=== PATIENT | female | born 1945 | race Caucasian/White ===

== ENCOUNTER 2016-12-21 13:30 | Emergency (ER) | payer BC, MEDICARE ==
[~2016-12-21] VITALS: Ht 167.6 cm; Wt 90.7 kg
[~2016-12-21 13:30] MED LIST: ASPI81TA2 PO; ATEN50TA PO; CHOL20004 PO; CYAN100031 PO; FENO48TA16 PO; FURO20TA3 PO; GLIM2TAB2 PO; HYDR12.58 PO; LISI-334 PO; LOVA40TA2 PO; MELO-156 PO; METF500T4 PO
[2016-12-21 13:38] VITALS: BP 201/95
[2016-12-21] MEDS ORDERED: fentaNYL PF VIAL 100 MCG/2 ML VIAL IM ONE (13:45)
--- NOTE | 2016-12-21 14:10 | PHYS DOC ---
Past Medical History Past Medical History: Cancer, Diabetes-Type II, Hypertension, Other Additional Past Medical Histor: SKIN CA Past Surgical History: Hysterectomy, Pacemaker Alcohol Use: None Drug Use: None Adult General Chief Complaint Chief Complaint: LOWEREXTREMITY INJURY HPI HPI Patient is a 71 year old female with history of diabetes type 2, hypertension, who presents today with mild right anterior knee pain and right foot pain that began today after she fell down. Patient states she tripped on her grandchildren 's block and she fell on her buttock. Patient denies any back pain. Review of Systems Review of Systems Constitutional: Denies fever or chills [] Eyes: Denies change in visual acuity, redness, or eye pain [] HENT: Denies nasal congestion or sore throat [] Musculoskeletal: Right anterior knee and right foot pain Integument: Denies rash or skin lesions [] Neurologic: Denies headache, focal weakness or sensory changes [] Endocrine: Denies polyuria or polydipsia [] Current Medications Current Medications Current Medications Medications (Trade) Dose Ordered Sig/Anderson Start Time Stop Time Status Last Admin Dose Admin Fentanyl Citrate (Fentanyl 2ml Vial) 50 mcg 1X ONCE 12/21/16 13:45 12/21/16 13:46 DC 12/21/16 14:14 50 MCG Allergies Allergies Allergies Coded Allergies Type Severity Reaction Last Updated Verified codeine Allergy Intermediate 10/14/14 Yes Physical Exam Physical Exam Constitutional: Well developed, well nourished, no acute distress, non-toxic appearance. [] HENT: Normocephalic, atraumatic, bilateral external ears normal, oropharynx moist, no oral exudates, nose normal. [] Eyes: PERRLA, EOMI, conjunctiva normal, no discharge. [] Skin: Warm, dry, no erythema, no rash. [] Back: No tenderness, no CVA tenderness. [] Extremities: Right lower extremity with no obvious deformity. Tenderness diffusely on palpation of the right anterior knee. Full range of motion to the right knee, negative Fredy sign and negative Ollie's sign negative anterior -posterior drawer sign to the right knee. Right dorsal foot with small amount of bruising on the distal end of the first and second metatarsals. Tenderness on palpation to the area. No pain or tenderness on palpation of the right navicular bone or the base of the fifth metatarsal. Full range of motion to the right foot. +2 right pedal pulse. Cap refill less than 2 seconds the right lower extremity. Sensation intact to the right lower extremity. Neurologic: Alert and oriented X 3, normal motor function, normal sensory function, no focal deficits noted. [] Psychologic: Affect normal, judgement normal, mood normal. [] Current Patient Data Vital Signs Vital Signs Date Time Temp Pulse Resp B/P (MAP) Pulse Ox O2 Delivery O2 Flow Rate FiO2 12/21/16 14:14 16 Room Air 12/21/16 13:38 97.7 89 97 97.7 EKG EKG [] Radiology/Procedures Radiology/Procedures []PROCEDURE: FOOT RIGHT 3V Exam performed: Right foot 3 views. Clinical Indication: Patient tripped and fell today, pain to the dorsal foot. Date of Service:12/21/16. Comparison :None available Findings: PA, oblique and lateral radiographs of the foot reveal the osseous structures to be intact and well aligned. The joint spaces are well preserved and the articular margins are smooth. There is diffuse soft tissue swelling. Impression: Radiographically normal osseous structures of the right foot. DICTATED and SIGNED BY: JAVI AVILEZ MD DATE: 12/21/161414 CC: ROBERT MANCIA MD; YANIV THAKUR APRN ~ PROCEDURE: KNEE RIGHT 4V Indication: Fall with right knee pain. Time of exam 1359 hours. 4 views of the right knee were obtained. There is tricompartmental degenerative change with joint space narrowing and marginal spurring. No fracture, dislocation or effusion is detected. Impression: Degenerative changes. No acute bony abnormalities detected. DICTATED and SIGNED BY: EJ TRAN MD DATE: 12/21/16 141 CC: ROBERT MANCIA MD; YANIV THAKUR APRN ~ PROCEDURE: TIBIA FIBULA RIGHT Indication: Fall and right leg pain. Time of exam 1357 hours. Alignment at the knee and ankle appears normal. The tibia and fibula appear intact. No fractures are seen. Impression: No acute bony abnormality is detected. DICTATED and SIGNED BY: EJ TRAN MD DATE: 12/21/16 141 CC: ROBERT MANCIA MD; YANIV THAKUR APRN ~ Course & Med Decision Making Course & Med Decision Making Pertinent Labs and Imaging studies reviewed. (See chart for details) Patient is in the ED with right foot and right knee pain after falling on it. X- rays of the right knee and right ankle interpreted by radiologist are negative for any acute findings. Patient was discharged with instructions to follow-up with orthopedic doctor which we provided in one week. Ice elevation encouraged. Dragon Disclaimer Dragon Disclaimer This electronic medical record was generated, in whole or in part, using a voice recognition dictation system. Departure Departure Impression: Primary Impression: Contusion of right knee Additional Impressions: Fall from standing Sprain of right foot Disposition: HOME, SELF-CARE Condition: STABLE Referrals: ROBERT MANCIA MD (PCP) FILI ALFONSO MD Follow-up with the provided orthopedic doctor or your own doctor in one week Patient Instructions: Contusion, Foot Sprain Additional Instructions: You were seen for right foot sprain and right knee contusion after he fell. Ice and elevate the extremities. Take Tylenol as needed for pain. Follow-up with her own doctor the provided orthopedic doctor in 1-2 weeks if pain continues. Problem Qualifiers Primary Impression: Contusion of right knee Encounter type: initial encounter Qualified Codes: S80.01XA - Contusion of right knee, initial encounter Additional Impressions: Fall from standing Encounter type: initial encounter Qualified Codes: W19.XXXA - Unspecified fall, initial encounter Sprain of right foot Encounter type: initial encounter Qualified Codes: S93.601A - Unspecified sprain of right foot, initial encounter YANIV THAKUR APRN December 21, 2016 14:10
--- NOTE | 2016-12-21 14:17 | RAD ---
Indication: Fall and right leg pain. Time of exam 1357 hours. Alignment at the knee and ankle appears normal. The tibia and fibula appear intact. No fractures are seen. Impression: No acute bony abnormality is detected.
--- NOTE | 2016-12-21 14:18 | RAD ---
Exam performed: Right foot 3 views. Clinical Indication: Patient tripped and fell today, pain to the dorsal foot. Date of Service:12/21/16. Comparison :None available Findings: PA, oblique and lateral radiographs of the foot reveal the osseous structures to be intact and well aligned. The joint spaces are well preserved and the articular margins are smooth. There is diffuse soft tissue swelling. Impression: Radiographically normal osseous structures of the right foot.
--- NOTE | 2016-12-21 14:18 | RAD ---
Indication: Fall with right knee pain. Time of exam 1359 hours. 4 views of the right knee were obtained. There is tricompartmental degenerative change with joint space narrowing and marginal spurring. No fracture, dislocation or effusion is detected. Impression: Degenerative changes. No acute bony abnormalities detected.
== END 2016-12-21 14:45 | disposition home or self-care (01) ==
LOC: ER 13:30
DX: S80.01XA Contusion of right knee, initial encounter (principal); S93.601A Unspecified sprain of right foot, initial encounter; E11.9 Type 2 diabetes mellitus without complications; I10 Essential (primary) hypertension; Z95.0 Presence of cardiac pacemaker; Z88.5 Allergy status to narcotic agent; W18.09XA Striking against other object with subsequent fall, initial encounter; Y93.89 Activity, other specified; Y92.89 Other specified places as the place of occurrence of the external cause; Y99.8 Other external cause status
CPT/HCPCS: 73564; 73590; 73630; 96372; 99284; J3010

== ENCOUNTER → 2018-07-29 | Outpatient (CLI) | payer BC ==
[~2018-07-29] MED LIST changes: +ASPI-630 PO; -ASPI81TA2 PO; -CHOL20004 PO; +CHOL200074 PO; -MELO-156 PO; +MELO7.5T29 PO; +METF500T16 PO; -METF500T4 PO
--- NOTE | 2018-07-29 16:19 | KCIC ---
EXAM: Right lower extremity venous Doppler sonogram. HISTORY: Pain and swelling. TECHNIQUE: Bustamante scale and color Doppler sonographic evaluation of the right lower extremity veins with spectral waveform analysis was performed. FINDINGS: There is normal color flow, normal compressibility and there are normal spectral waveforms in the common femoral, superficial femoral, popliteal, posterior tibial and greater saphenous veins. IMPRESSION: No Doppler evidence of lower extremity deep venous thrombosis. Electronically signed by: Deysi Gil MD (07/29/2018 4:14 PM) [id number]
== END | disposition home or self-care (01) ==
LOC: KCIC US 15:37
PROVIDERS: ATTEND Nurse Practitioner
DX: M79.89 Other specified soft tissue disorders (principal); W19.XXXA Unspecified fall, initial encounter; Y93.89 Activity, other specified; Y92.89 Other specified places as the place of occurrence of the external cause; Y99.8 Other external cause status
CPT/HCPCS: 93971

== ENCOUNTER 2018-09-25 06:56 | Day surgery (SDC) | payer MEDICAID, OTHER ==
[~2018-09-25] VITALS: Ht 160 cm; Wt 83.9 kg
[~2018-09-25 06:56] MED LIST changes: +ATORVASTATIN CA80 MG PO; +ISOS60TA2 PO; +LISI10TA2 PO; +MAGN400T3 PO; +NITR0.4T22 SL; +RIVA20TA2 PO; +SOTA80TA48 PO
[2018-09-25] MEDS ORDERED: PROCHLORPERAZINE 10 MG/2 ML VIAL. IV PRN (07:00)
[2018-09-25] MEDS ORDERED: fentaNYL PF VIAL 100 MCG/2 ML VIAL IV PRN ×2 (07:00)
[2018-09-25] MEDS ORDERED: IV RINGERS,LACTATED 1000ML 1,000 ML IV SCH (07:00)
[2018-09-25] MEDS ORDERED: LIDOCAINE 1% PF 2 ML VIAL. ID PRN (07:00)
--- NOTE | 2018-09-25 07:33 | DISCH ---
DISCHARGE INSTRUCTIONS Condition on Discharge Condition on Discharge: Stable Activity After Discharge Activity Instructions for Disc: Activity as tolerated Other activity instructions: wiggle fingers Bathing Instructions: Shower-keep dressing dry Lifting Instructions after Dis: No heavy lifting, No pulling or pushing, Do not lift >10 pounds, Add. restrict see below Exercise Instruction after Dis: Progress as tolerated Driving Instructions after Dis: No driving for 2 weeks Weight Bearing Status after Di: No restrictions Diet after Discharge Diet after Discharge: Regular, Diabetic No Calorie Level Diet Texture: Regular Liquid Texture: Thin Liquid Swallowing Supervision: None needed Wound Incision Care Wound/Incision Care: Ice to area for comfort, Keep wound/cast CDI, Keep wound elevated, Change dressing, Do not change dressing, No wound care needed Other wound/incision instructi: ok to change dressign after 2 days Checks after Discharge Checks after discharge: Check blood sugar, ac/hs, Check your Temp as needed Contacting the [facility] after DC Call your doctor for: Concerns you may have Follow-Up Follow up with: Chaz in 2 weeks ELLIE CELESTIN II, MD Sep 25, 2018 07:33
[2018-09-25] MEDS ORDERED: PROPOFOL 20 ML IV ONE (07:54)
[2018-09-25] MEDS ORDERED: DEXAMETHASONE SOD PHOS 20 MG/5 ML VIAL. ONE (07:54)
[2018-09-25] MEDS ORDERED: fentaNYL PF VIAL 100 MCG/2 ML VIAL ONE (07:54)
[2018-09-25] MEDS ORDERED: ONDANSETRON PF 4 MG/2 ML VIAL. ONE (07:54)
[2018-09-25] MEDS ORDERED: LIDOCAINE 2% PF Vial for OR 5 ML VIAL. ONE (07:54)
[2018-09-25] MEDS ORDERED: LIDOCAINE 1% PF 30 ML VIAL. ONE (08:13)
[2018-09-25] MEDS ORDERED: BUPIVACAINE MPF 0.5% 30 ML VIAL. ONE (08:13)
--- NOTE | 2018-09-25 08:59 | PDOC4 ---
Operative Note Operative Note Date of procedure: 09/25/2018 Surgeon: Reynaldo Celestin Asst.: None Preoperative diagnosis: Right trigger finger, ring finger Postoperative diagnosis: Same Procedure performed: Open right trigger finger release, fourth digit Anesthesia: Sedation plus local Tourniquet time: 10 minutes Blood loss: 2 mL Findings: Thickened nodule at flexor tendon Complications: None Reason for procedure: Patient is a 73-year-old female who had catching and locking at her right ring finger that failed conservative therapies. Clinical and radiographic examination were consistent with the above preoperative diagnosis and we had a discussion of the risks, benefits, alternatives to surgery and she wished to proceed. Description of procedure: Patient was greeted in the preoperative area where the correct digit was verified and marked. They were taken back to the operative suite and transferred gently supine onto the operating room table. There antibiotics were started. The patient underwent conscious sedation monitored by the anesthesiology team. A tourniquet was applied to the patient's right upper extremity. Right upper extremity was then prepped and draped in our usual sterile fashion we conducted our standard preoperative timeout. I then palpated and over the affected digit for the nodule and metacarpal head. Extremity exsanguinated with an Esmarch and tourniquet insufflated to 250 mmHg. I then made an incision corresponding to this. I incised skin with a scalpel and used bipolar cautery for hemostasis. Mosquitoes were used to dissect the subcutaneous tissue and to identify the A1 karl which was then transected with tenotomy scissors. The flexor tendons were delivered from the operative field with the mosquito to help ensure that accomplished a complete release. After this, the wound was irrigated out and the skin was closed with simple interrupted 3-0 nylon. All counts correct 2 prior to wound closure. No complications. Sterile soft bulky dressing was applied. Tourniquet was let down. The patient was awakened from sedation and transferred gently supine to the recovery room cart and taken to PACU in a stable and extubated condition. Postoperative plan is to discharge patient home. Active range of motion was encouraged. Wound care was discussed with family and given and written form. Patient will follow up with me in 2 weeks, sooner should a problem arise. REYNALDO CELESTIN II, MD Sep 25, 2018 08:59
[2018-09-25 09:46] VITALS: BP 115/68
[2018-09-25] MEDS ORDERED: PHENYLEPHRINE 10 MG/ML VIAL. ONE (10:15)
== END 2018-09-25 09:46 | disposition home or self-care (01) ==
LOC: SURG 06:56
PROVIDERS: ATTEND Orthopaedic Surgery Sports Medicine
DX: M65.341 Trigger finger, right ring finger (principal); M17.0 Bilateral primary osteoarthritis of knee; I10 Essential (primary) hypertension; E11.9 Type 2 diabetes mellitus without complications; E78.5 Hyperlipidemia, unspecified; Z95.0 Presence of cardiac pacemaker; Z83.3 Family history of diabetes mellitus; Z83.6 Family history of other diseases of the respiratory system; Z84.1 Family history of disorders of kidney and ureter; Z79.899 Other long term (current) drug therapy; Z88.5 Allergy status to narcotic agent; Z79.84 Long term (current) use of oral hypoglycemic drugs
CPT/HCPCS: 26055; 82962; J0690; J1100; J2001; J2405; J2704; J3010; J3490

== ENCOUNTER → 2020-12-29 | Day surgery (SDC) | payer MEDICARE ==
[~2020-12-29] VITALS: Ht 160 cm; Wt 186.0 kg
[~2020-12-29] MED LIST changes: -GLIM2TAB2 PO; +GLIM2TAB7 PO; -ISOS60TA2 PO; +ISOS60TA55 PO; +IV RINGERS,LACTATED 1000ML 1,000 ML IV SCH; +LIDOCAINE 2% PF 5 ML VIAL. ONE; -LISI-334 PO; +LISI10TA16 PO; -LISI10TA2 PO; +LISI20TA18 PO; -MAGN400T3 PO; +MAGN400T5 PO; +PROPOFOL 10 MG/ML (20ML) VIAL. IV ONE
[2020-12-29 06:57] VITALS: BP 133/63
[2020-12-29 08:13] VITALS: BP 127/63
== END | disposition home or self-care (01) ==
LOC: SURG 06:00
PROVIDERS: ATTEND Internal Medicine Gastroenterology
DX: D50.0 Iron deficiency anemia secondary to blood loss (chronic) (principal); K29.50 Unspecified chronic gastritis without bleeding; K64.0 First degree hemorrhoids; K63.89 Other specified diseases of intestine; K31.89 Other diseases of stomach and duodenum; E78.00 Pure hypercholesterolemia, unspecified; I10 Essential (primary) hypertension; I48.91 Unspecified atrial fibrillation; E11.9 Type 2 diabetes mellitus without complications; G47.30 Sleep apnea, unspecified; E66.9 Obesity, unspecified; M19.90 Unspecified osteoarthritis, unspecified site; Z90.710 Acquired absence of both cervix and uterus; Z98.890 Other specified postprocedural states; Z85.828 Personal history of other malignant neoplasm of skin; Z79.82 Long term (current) use of aspirin; Z79.84 Long term (current) use of oral hypoglycemic drugs; Z88.5 Allergy status to narcotic agent; Z20.822 Contact with and (suspected) exposure to COVID-19
CPT/HCPCS: 43235; 45378; 87426; J2704

== ENCOUNTER 2021-06-20 09:45 | Day surgery (SDC) | payer MEDICARE, MEDICAID ==
[~2021-06-20] VITALS: Ht 160 cm; Wt 84.5 kg
[~2021-06-20 09:45] MED LIST changes: +HYDROmorphone 2 MG/ML VIAL IVP PRN; -LIDOCAINE 2% PF 5 ML VIAL. ONE; +MAGN400T48 PO; -MAGN400T5 PO; +MORPHINE SULFATE 2 MG/ML INJ. IVP PRN; +PROCHLORPERAZINE 10 MG/2 ML VIAL. IVP PRN; -PROPOFOL 10 MG/ML (20ML) VIAL. IV ONE; +SOTA120T14 PO; +fentaNYL PF VIAL 100 MCG/2 ML VIAL IVP PRN
[2021-06-20] MEDS ORDERED: DEXAMETHASONE SOD PHOS 4 MG/ML VIAL ONE (10:14)
[2021-06-20] MEDS ORDERED: MIDAZOLAM HCL/PF 2 MG/2 ML VIAL. ONE (10:14)
[2021-06-20] MEDS ORDERED: FAMOTIDINE 20 MG/2 ML VIAL ONE (10:14)
[2021-06-20] MEDS ORDERED: PROPOFOL 10 MG/ML (20ML) VIAL. IV ONE (10:14)
[2021-06-20 10:18] VITALS: BP 183/77
[2021-06-20] MEDS ORDERED: INSULIN LISPRO 100 UNIT/ML 3ML VIAL for OP,RR ONLY. SQ PRN (10:30)
[2021-06-20] MEDS ORDERED: INSULIN LISPRO 100 UNIT/ML 3ML VIAL for OP,RR ONLY. SQ ONE (10:40)
[2021-06-20] MEDS ORDERED: BUPIVACAINE MPF 0.25% 30 ML VIAL. ONE (10:42)
[2021-06-20] MEDS ORDERED: TRIAMCINOLONE ACETONIDE 40 MG/ML VIAL. INT ART ONE (10:45)
[2021-06-20] MEDS ORDERED: TRAM50TA PO (11:00)
--- NOTE | 2021-06-20 11:15 | DISCH ---
DISCHARGE INSTRUCTIONS Condition on Discharge Condition on Discharge: Stable Activity After Discharge Activity Instructions for Disc: Activity as tolerated, Avoid exertion Bathing Instructions: Shower-keep dressing dry Lifting Instructions after Dis: No heavy lifting, No pulling or pushing, Do not lift >10 pounds, Add. restrict see below Exercise Instruction after Dis: Progress as tolerated Driving Instructions after Dis: Do not drive today, No driving for 2 weeks Weight Bearing Status after Di: No restrictions Diet after Discharge Diet after Discharge: Regular, Diabetic No Calorie Level Diet Texture: Regular Liquid Texture: Thin Liquid Swallowing Supervision: None needed Wound Incision Care Wound/Incision Care: Ice to area for comfort, Keep wound/cast CDI, Keep wound elevated, Change dressing, Do not change dressing, No wound care needed Other wound/incision instructi: May change dressings postoperative day #3 Checks after Discharge Checks after discharge: Check blood sugar, ac/hs, Check your Temp as needed Contacting the [facility] after DC Call your doctor for: Concerns you may have Follow-Up Follow up with: Dr. Melton in 10 to 14 days RAY MELTON Jr. DO Jun 20, 2021 11:15
[2021-06-20] MEDS ORDERED: DEXTROSE 50% 25 GM / 50ML DISP.SYRIN. IV ONE ×2 (11:34→12:15)
--- NOTE | 2021-06-20 11:58 | OP ---
DATE OF SURGERY: 06/20/2021 PREOPERATIVE DIAGNOSES: Trigger finger, left index finger and degenerative joint disease, left knee. POSTOPERATIVE DIAGNOSES: Trigger finger, left index finger and degenerative joint disease, left knee. PROCEDURE: 1. Trigger finger release, A1 karl, left index finger. 2. Injection of 40 mg Kenalog, 2 mL 0.25% Marcaine, left knee. SURGEON: Maicol Jaimes MD. DIAMOND DRILLER HELPER: Khadar Croft MD. TYPE OF ANESTHESIA: General. COMPLICATIONS: None. ESTIMATED BLOOD LOSS: 5 mL. Standard dictation for engineer first assistant. DESCRIPTION OF PROCEDURE: The patient was taken to the operative suite, given a general anesthetic. The left upper extremity was then prepped and draped in a sterile fashion. Incision was made directly over the area of the A1 karl through skin and subcutaneous tissues. This was carefully taken down to identify the A1 karl. This was released in its entirety. The tendons were then inspected and noted to be intact and fully released. Therefore, after irrigation, again, the skin was reapproximated with 3-0 nylon. Sterile dressing was applied. Tourniquet was deflated with good return of pulses and capillary refill. Injection was undertaken under sterile preparation of the left knee. This was with the 40 mg Kenalog, 2 mL 0.25% Marcaine. The patient was then taken from the operative bed to the postoperative bed, taken to the PACU in stable condition. TREVOR DR: John TID: [id number]
[2021-06-20] MEDS ORDERED: traMADol 50 MG TABLET PO ONE (12:00)
[2021-06-20 12:05] VITALS: BP 154/73
== END 2021-06-20 12:26 | disposition home or self-care (01) ==
LOC: SURG 09:45
PROVIDERS: ATTEND Orthopaedic Surgery
DX: M65.322 Trigger finger, left index finger (principal); M79.642 Pain in left hand; M17.12 Unilateral primary osteoarthritis, left knee; I10 Essential (primary) hypertension; E78.00 Pure hypercholesterolemia, unspecified; E66.9 Obesity, unspecified; I48.91 Unspecified atrial fibrillation; K21.9 Gastro-esophageal reflux disease without esophagitis; E11.9 Type 2 diabetes mellitus without complications; Z90.710 Acquired absence of both cervix and uterus; Z98.890 Other specified postprocedural states; Z85.828 Personal history of other malignant neoplasm of skin; Z79.82 Long term (current) use of aspirin; Z79.84 Long term (current) use of oral hypoglycemic drugs; Z79.899 Other long term (current) drug therapy; Z88.5 Allergy status to narcotic agent
CPT/HCPCS: 20610; 26055; 82962; A4930; A6402; J0690; J1100; J1815; J2250; J2704; J3301; J3490; A4657; A6452